=== PATIENT | male | born 1970 | race African-American/Black ===

== ENCOUNTER 2017-12-20 16:05 | Emergency (ER) | payer OTHER ==
[~2017-12-20] VITALS: Ht 188 cm; Wt 72.4 kg
[~2017-12-20 16:05] MED LIST: BACTRIM,SEPT1 TABLET PO
[2017-12-20 16:55] LABS: HEMATOCRIT 39.2 % (38.0-50.0); MCHC 35.7 G/DL (30.0-36.0); MCV 89.5 FL (86-99); PLATELET COUNT 201 K/uL (156-360); RBC DIS.WIDTH-CV 14.8 % (11.8-14.6); RED BLOOD COUNT 4.38 M/uL (4.00-5.50); WHITE BLOOD COUNT 5.6 K/uL (4.1-10.2)
[2017-12-20 17:05] LABS: CHLORIDE 106 mEq/L (99-109); POTASSIUM 4.2 mEq/L (3.7-5.4); SODIUM 141 mEq/L (136-147)
[2017-12-20 17:07] LABS: GLUCOSE 89 mg/dL (70-99)
[2017-12-20 17:11] LABS: CREATININE 1.1 mg/dL (0.6-1.3); GFR ESTIMATE (CALCULATED) > 59 mL/min/ (58.99-99999); UREA NITROGEN (BUN) 10 mg/dL (9-23)
[2017-12-20 17:17] LABS: TROP-I INTERPRETATION NEGATIVE; TROPONIN-I < 0.01 ng/mL (0.0-0.30)
[2017-12-20] MEDS ORDERED: NAPROSYN500 MG PO (18:24)
[2017-12-20 19:00] VITALS: BP 121/62
== END 2017-12-20 19:01 | disposition home or self-care (01) ==
LOC: EME 16:05
DX: R07.89 Other chest pain (principal); R06.00 Dyspnea, unspecified; J43.0 Unilateral pulmonary emphysema [MacLeod's syndrome]; F17.200 Nicotine dependence, unspecified, uncomplicated
CPT/HCPCS: 71046; 80048; 84484; 85027; 93005; 99281; 99284; J1885